=== PATIENT | male | born 1985 ===

== ENCOUNTER 2021-04-15 09:38 | Emergency (ER) | payer OTHER ==
[2021-04-15 09:46] VITALS: BP 140/95; PULSE 72; TEMP 97.8; BMI 32.4
[2021-04-15] MEDS ORDERED: KETOROLAC TROMETHAMINE 15 MG/ML VIAL IVPUSH ONE (11:23)
[2021-04-15] MEDS ORDERED: KETOROLAC TROMETHAMINE 15 MG/ML VIAL ONE (11:34)
[2021-04-15 11:44] LABS: BASO % 0.2 % (0-2.0); HEMOGLOBIN 16.3 GM/dL (11.7-16.9); LYMPH % 29.4 % (8-40); MCH 29.7 pg (25.7-33.7); MCHC 33.2 g/dl (32.0-35.9); MEAN CELL VOLUME 89.6 fl (80-96); MEAN PLT VOLUME 7.8 fl (7.5-11.1); MONO % 7.8 % (3.8-10.2); NEUT % 60.6 % (42.8-82.8); PLATELET COUNT 199 10^3/uL (134-434); RBC 5.46 M/mm3 (4.00-5.60); RDW 13.2 % (11.9-15.9); WHITE BLOOD COUNT 5.6 K/mm3 (4.0-10.0)
[2021-04-15 12:06] LABS: ALBUMIN 4.3 g/dl (3.4-5.0); CALCIUM 9.8 mg/dL (8.5-10.1)
[2021-04-15 12:07] LABS: BLOOD UREA NITROGEN 13.2 mg/dL (7-18)
[2021-04-15 12:10] LABS: CREATININE 0.8 mg/dL (0.55-1.3)
[2021-04-15 12:12] LABS: BILIRUBIN,TOTAL 0.8 mg/dL (0.2-1)
[2021-04-15 13:11] LABS: CALCIUM 9.7 mg/dL (8.5-10.1)
[2021-04-15 13:12] LABS: ALBUMIN 4.2 g/dl (3.4-5.0); BLOOD UREA NITROGEN 13.4 mg/dL (7-18)
[2021-04-15 13:15] LABS: CREATININE 0.8 mg/dL (0.55-1.3)
[2021-04-15 13:17] LABS: BILIRUBIN,TOTAL 0.8 mg/dL (0.2-1); TOT PROT 6.9 g/dl (6.4-8.2)
== END 2021-04-15 14:35 | disposition home or self-care (01) ==
LOC: JER 09:38
PROC: 3E0233Z Introduction of Anti-inflammatory into Muscle, Percutaneous Approach (ICD-10-PCS; principal; 2021-04-15)
DX: R07.89 Other chest pain (principal)
CPT/HCPCS: 36415; 71046-TC-FY; 80053; 84484; 85025; 85379; 93005; 93010; 96372; 99284-25